=== PATIENT | female | born 1945 | race Caucasian/White ===

== ENCOUNTER 2017-04-20 11:06 | Emergency (ER) | payer MEDICARE, OTHER ==
[~2017-04-20] VITALS: Ht 165.1 cm; Wt 156.9 kg
[~2017-04-20 11:06] MED LIST: AMLO5 PO; APAP PO; ASPI81CH PO; ATOR40TA PO; CHLO500; CYAN1000 PO; CYCL10 PO; DOXE25 PO; DULO60 PO; EZET10; EZET10 PO; FLUSAL2505 IH; GABA300 PO; HEARTBURN RELI150 M1 PO; HYDACE5; HYDR1TAB94 PO; Humalog100 UNIT/1; INSDET100; INSDET100 SC; INSDET100 SUBQ; INSUASPI; INSULANPEN PO; Kristalose20 GM PO; LEVFLO500 PO; LISHYD1012 PO; LISHYD2025 PO; LISI20 PO; METF500 PO; METPRE4DP PO; METR59TL; Minocycline HC100 MG PO; Norco 5-325 Ta1 EACH PO; OMEP20ER; OMEP20ER PO; OXYACE7.5T PO; OXYB5 PO; OXYCODONE PO; Percocet 5-3251 EACH PO; Prilosec Otc20 MG PO; QUET25 PO; QUIN325; ROSU10TA; RXOXYACE PO; SEROQUEL PO; SPIR25 PO; Synthroid/Lev0.05 MG PO; TIZANIDINE HCL4 MG PO; TOUJEO SOL300 UNIT/1 SC; TRIHYD253A; VALD20; Valium5 MG PO; XARELTO15 MG PO; XARELTO20 MG PO
[2017-04-20] MEDS ORDERED: Questran4 GM GT (11:26)
[2017-04-20 11:53] LABS: BASOPHILS ABSOLUTE AUTO 0.02 K/mm3 (0.00-0.23); BASOPHILS PERCENT AUTO 0 % (0-2); EOSINOPHILS ABSOLUTE AUTO 0.07 K/mm3 (0.00-0.68); EOSINOPHILS PERCENT AUTO 1 % (0-6); Hematocrit 37.7 % (33.0-51.0); Hemoglobin 12.8 g/dL (11.5-16.0); IMMATURE GRAN ABSOLUTE AUTO 0.01 K/mm3 (0.00-0.10); IMMATURE GRAN PERCENT AUTO 0 % (0-1); LYMPHOCYTES ABSOLUTE AUTO 1.94 K/mm3 (0.84-5.20); LYMPHOCYTES PERCENT AUTO 40 % (21-46); MONOCYTES ABSOLUTE AUTO 0.39 K/mm3 (0.16-1.47); MONOCYTES PERCENT AUTO 8 % (4-13); Mean Corpuscular HGB 31.5 pg (26.0-34.0); Mean Corpuscular Volume 93 fL (80-100); Mean Platelet Volume 10.7 fL (9.1-12.4); NEUTROPHILS ABSOLUTE AUTO 2.44 K/mm3 (1.96-9.15); NEUTROPHILS PERCENT AUTO 50 % (41-73); Platelet Count 248 K/mm3 (150-400); RDW Coefficient Variation 11.7 % (11.7-14.2); RDW Standard Deviation 40.2 fL (35.1-46.3); Red Blood Cell Count 4.06 M/mm3 (3.80-5.20); White Blood Cell Count 4.87 K/mm3 (4.00-11.30)
[2017-04-20 12:07] LABS: Bun/Creatinine Ratio 17.3 (12.0-20.0); Calcium, Blood 8.9 mg/dL (8.5-10.1); Creatinine, Blood 0.98 mg/dL (0.40-1.00); Potassium, Blood 4.3 mmol/L (3.5-5.5)
[2017-04-20 12:09] LABS: International Normalized Ratio 1.13; Prothrombin Time Results 11.8 Sec (9.7-11.5)
[2017-04-20] MEDS ORDERED: Percocet 5-3251 EACH PO (13:06)
== END 2017-04-20 13:46 | disposition home or self-care (01) ==
LOC: ER 11:06
PROVIDERS: Emergency Medicine
DX: M79.651 Pain in right thigh (principal); E11.9 Type 2 diabetes mellitus without complications; E66.01 Morbid (severe) obesity due to excess calories; Z86.718 Personal history of other venous thrombosis and embolism; Z88.0 Allergy status to penicillin; Z88.5 Allergy status to narcotic agent; Z79.899 Other long term (current) drug therapy; Z79.4 Long term (current) use of insulin; Z90.49 Acquired absence of other specified parts of digestive tract; Z68.43 Body mass index [BMI] 50.0-59.9, adult
CPT/HCPCS: 80048; 85025; 85610; 85730; 93971; 96374; 96375; 99284; J1170; J1885; J2405